=== PATIENT | female | born 1960 | race Two or more races ===

== ENCOUNTER 2021-02-28 20:44 | Emergency (ER) | payer SELFPAY ==
[~2021-02-28] VITALS: Ht 162.6 cm; Wt 61.2 kg
[2021-02-28 21:31] LABS: Urine Bacteria FEW /hpf (None Seen); Urine Blood Negative /uL (Negative); Urine Specific Gravity 1.004 (1.001-1.035); Urine WBC 27 /hpf (0 - 5)
[2021-02-28] MEDS ORDERED: cefTRIAXone W LIDOCAINE 1 GM IM IM ONE (23:15)
[2021-02-28] MEDS ORDERED: cefTRIAXone SOD 1,000 MG VL ONE (23:18)
[2021-03-01 01:32] VITALS: BP 145/90
== END 2021-03-01 01:33 | disposition home or self-care (01) ==
LOC: ER 20:46
DX: N39.0 Urinary tract infection, site not specified (principal)
CPT/HCPCS: 81001; 96372; 99283; J0696